=== PATIENT | male | born 1985 | race Caucasian/White ===

== ENCOUNTER 2020-06-05 11:09 | Emergency (ER) | payer BC, OTHER ==
[2020-06-05 11:39] VITALS: BP 144/94; PULSE 77; RESP 18; TEMP 98.1
[2020-06-05] MEDS ORDERED: KETOROLAC 15 MG/ML 1 ML VIAL IM STA (11:57)
[2020-06-05] MEDS ORDERED: ORPHENADRINE 30 MG/ML 2 ML VIAL IM STA (11:57)
--- NOTE | 2020-06-05 12:08 | ED ---
General Adult HPI - General Chief complaint: Back Pain/Injury Stated complaint: back pain Time Seen by Provider: 06/05/20 11:40 Source: patient, RN notes reviewed Mode of arrival: ambulatory Limitations: no limitations - History of Present Illness Initial comments: 34-year-old male presents to the emergency room for a chief complaint of back pain. Patient reports that he jumped out of his kids trampoline yesterday and felt a pain in his back. States that her out the evening as he was sitting was worsening. States now the pain worsens with movement. Denies any pain radiating down the legs. Denies weakness of the legs. Denies fevers or chills. Denies saddle anesthesia or bladder or bowel changes. Patient states last year he had a stress fracture of L5 and is here to have an x-ray performed.Patient has no other complaints at this time including shortness of breath, chest pain, abdominal pain, nausea or vomiting, headache, or visual changes. - Related Data Previous Rx's Medication Instructions Recorded Ibuprofen [Motrin] 600 mg PO Q6HR PRN #20 tab 06/05/20 Allergies Allergy/AdvReac Type Severity Reaction Status Date / Time No Known Allergies Allergy Verified 06/05/20 13:07 Review of Systems ROS Statement: Those systems with pertinent positive or pertinent negative responses have been documented in the HPI. ROS Other: All systems not noted in ROS Statement are negative. Past Medical History Past Medical History: No Reported History History of Any Multi-Drug Resistant Organisms: None Reported Past Surgical History: Hernia Repair, Orthopedic Surgery Past Psychological History: No Psychological Hx Reported Smoking Status: Never smoker Past Alcohol Use History: None Reported Past Drug Use History: None Reported General Exam Limitations: no limitations General appearance: alert, in no apparent distress Head exam: Present: atraumatic, normocephalic, normal inspection Eye exam: Present: normal appearance, PERRL, EOMI. Absent: scleral icterus, conjunctival injection, periorbital swelling ENT exam: Present: normal exam, mucous membranes moist Neck exam: Present: normal inspection, full ROM. Absent: tenderness, meningismus, lymphadenopathy Respiratory exam: Present: normal lung sounds bilaterally. Absent: respiratory distress, wheezes, rales, rhonchi, stridor Cardiovascular Exam: Present: regular rate, normal rhythm, normal heart sounds GI/Abdominal exam: Present: soft, normal bowel sounds. Absent: distended, tenderness, guarding, rebound, rigid Back exam: Present: other (Patient has pain with 90 flexion of the lumbar spine, extension to neutral position. Movement elicits pain.). Absent: paraspinal tenderness, vertebral tenderness Course Vital Signs 06/05/20 11:35 Temperature 98.1 F Pulse Rate 77 Respiratory 18 Rate Blood Pressure 144/94 O2 Sat by Pulse 98 Oximetry Medical Decision Making - Medical Decision Making Vitals are stable. Patient is well-appearing. HPI physical exam as documented. No red flag symptoms. Lumbar spine x-ray shows a mild degenerative disc disease however no vertebral compression collapse or malalignment. At this time patient was given Toradol and Norflex and did have some improvement in symptoms. Patient will be started on Motrin and Tylenol 3. He will be given a referral to orthopedics. He'll return here for any worsening symptoms. Disposition Clinical Impression: Mechanical back pain Disposition: HOME SELF-CARE Condition: Good Instructions (If sedation given, give patient instructions): Acute Low Back Pain (ED) Additional Instructions: Please take Motrin as needed for pain. Take Tylenol 3 for breakthrough pain. Follow up with orthopedics by calling today for an appointment. Return to the emergency room for any worsening symptoms. Prescriptions: Ibuprofen [Motrin] 600 mg PO Q6HR PRN #20 tab PRN Reason: Pain Is patient prescribed a controlled substance at d/c from ED?: No Referrals: Darnell Washington DO [Doctor of Osteopathic Medicine] - 1-2 days Time of Disposition: 14:00
--- NOTE | 2020-06-05 13:20 | XR ---
EXAMINATION TYPE: XR lumbar spine 2 or 3V DATE OF EXAM: 06/05/2020 Comparison: None Clinical History: 34-year-old male low back pain Findings: 5 lumbar type vertebral bodies. Vertebral body heights are preserved and alignment is maintained. The re is mild degenerative disc interspace narrowing at L5-S1. Impression: Mild degenerative disc disease L5-S1. No vertebral compression collapse or malalignment.
[2020-06-05] MEDS ORDERED: ACET/COD 300 MG/30 MG STARTER PACK 6 TAB BTL PO STA (14:00)
== END 2020-06-05 14:20 | disposition home or self-care (01) ==
LOC: EC 11:09
DX: M54.9 Dorsalgia, unspecified (principal); Y93.44 Activity, trampolining
CPT/HCPCS: 72100; 99283; J2360; J1885

== ENCOUNTER → 2023-01-25 | Outpatient (CLI) | payer BC ==
--- NOTE | 2023-01-25 10:06 | XR ---
EXAMINATION TYPE: XR lumbar spine 2 or 3V DATE OF EXAM: 01/25/2023 Comparison: None Clinical History: 37-year-old male M54.41 LUMBAGO WITH SCIATICA, RIGHT SIDE Findings: 5 lumbar type vertebral bodies. Vertebral body heights are preserved. There is mild degenerative disc disease with disc space narrowing in the lower lumbar spine. And alignment is maintained. Additional mild degenerative disc disease T11-T12. Impression: Mild degenerative disc disease lower thoracic spine as well as the lower lumbar spine. No vertebral c ompression collapse or malalignment.
== END | disposition home or self-care (01) ==
LOC: RADXRMAIN 09:34
PROVIDERS: ATTEND Family Medicine
DX: M54.41 Lumbago with sciatica, right side (principal); M51.35 Other intervertebral disc degeneration, thoracolumbar region
CPT/HCPCS: 72100

== ENCOUNTER 2023-03-23 16:48 | Inpatient (IN) | payer BC ==
[2023-03-23] MEDS: SODIUM CHLORIDE 0.9% 1,000 ML IV STA ×3 (17:35→21:09)
[2023-03-23] MEDS: ONDANSETRON 4 MG/2 ML VIAL IVP STA (17:36)
[2023-03-23] MEDS: KETOROLAC 15 MG/ML 1 ML VIAL IVP STA (17:36)
[2023-03-23] MEDS: PANTOPRAZOLE 40 MG/10 ML VIAL IVP STA (17:36)
[2023-03-23 18:14] LABS: Basophils % (A) 0 %; Eosinophils % (A) 0 %; HCT 45.3 % (39.0-53.0); HGB 15.8 gm/dL (13.0-17.5); Lymphocytes # (A) 0.5 k/uL (1.0-4.8); Lymphocytes % (A) 4 %; MCH 29.9 pg (25.0-35.0); MCHC 34.9 g/dL (31.0-37.0); MCV 85.6 fL (80.0-100.0); Mean Platelet Volume 8.6; Monocytes # (A) 0.1 k/uL (0-1.0); Monocytes % (A) 1 %; Neutrophils # (A) 12.1 k/uL (1.3-7.7); Neutrophils % (A) 94 %; Platelet Count 180 k/uL (150-450); RBC 5.29 m/uL (4.30-5.90); RDW 13.5 % (11.5-15.5); WBC 12.9 k/uL (3.8-10.6)
[2023-03-23 18:16] LABS: ALT 69 U/L (4-49); AST 46 U/L (17-59); African American GFR (CKD) >90 (>60 ml/min/1.73 sqM); Albumin 4.6 g/dL (3.5-5.0); Alkaline Phosphatase 85 U/L (38-126); Amylase 39 U/L (30-110); Anion Gap 13 mmol/L; Blood Urea Nitrogen 22 mg/dL (9-20); Calcium 9.3 mg/dL (8.4-10.2); Carbon Dioxide 20 mmol/L (22-30); Chloride 104 mmol/L (98-107); Glucose 119 mg/dL (74-99); Lipase 31 U/L (23-300); Non-African American GFR(CKD) 83 (>60 ml/min/1.73 sqM); Potassium 4.2 mmol/L (3.5-5.1); Sodium 137 mmol/L (137-145); Total Protein 7.6 g/dL (6.3-8.2)
[2023-03-23 18:47] LABS: INR 1.4 (<1.2); Partial Thromboplastin Time 26.4 sec (22.0-30.0); Prothrombin Time 14.1 sec (10.0-12.5)
--- NOTE | 2023-03-23 18:58 | US ---
EXAMINATION TYPE: US abdomen comp/pelvis limited DATE OF EXAM: 03/23/2023 COMPARISON: NONE CLINICAL INDICATION: Male, 37 years old with history of eval gallbladder; pain EXAM MEASUREMENTS: Liver Length: 19.4 cm Gallbladder Wall: 0.2 cm CBD: 0.3 cm Spleen: 13.3 cm Right Kidney: 12.9 x 4.7 x 4.8 cm Left Kidney: 14.1 x 5.2 x 4.7 cm Post Void Residual: not full Pancreas: Obscured by bowel gas Liver: Increased attenuation Gallbladder: No stones seen CBD: wnl Spleen: wnl Right Kidney: No hydronephrosis or masses seen Left Kidney: No hydronephrosis or masses seen Upper IVC: wnl Abd Aorta: wnl Bladder: Not fully distended. Bilateral Jets Seen: no IMPRESSION: 1. No acute sonographic abnormality of the gallbladder or biliary tree. 2. Mild hepatomegaly and hepatic steatosis.
[2023-03-23] MEDS: ACETAMINOPHEN TAB 500 MG TAB PO STA (19:50)
[2023-03-23] MEDS: MORPHINE SULFATE 4 MG/ML SYRINGE IVP STA (19:51)
--- NOTE | 2023-03-23 20:12 | CT ---
EXAMINATION TYPE: CT abdomen pelvis w con CT DLP: 1688.7 mGycm, Automated exposure control for dose reduction was used. DATE OF EXAM: 03/23/2023 7:29 PM COMPARISON: None. CLINICAL INDICATION:Male, 37 years old with history of right sided abd pain; right sided abdominal pa in TECHNIQUE: Axial CT of the abdomen and pelvis. Sagittal and coronal reformats were created on a [employer] workstation. Contrast used:100 ml mL of Isovue 370 with IV Contrast, (none if empty) Oral contrast used: without Oral Contrast (none if empty) FINDINGS: LOWER CHEST: No acute abnormality. Mild subsegmental atelectasis in the right lung base. ABDOMEN LIVER: Liver appears prominent with the right lobe measuring up to 22.8 cm craniocaudal; this could r epresent hepatomegaly versus Clara's lobe. Liver parenchyma is otherwise unremarkable. GALLBLADDER AND BILE DUCTS: Unremarkable gallbladder. No biliary ductal dilatation. PANCREAS: Unremarkable. SPLEEN: Unremarkable. ADRENAL GLANDS: Unremarkable. KIDNEYS AND URETERS: Kidneys enhance symmetrically. No evidence of hydronephrosis or visible renal ca lculus. The ureters are unremarkable. PELVIS BLADDER: Unremarkable REPRODUCTIVE: Unremarkable. ABDOMEN & PELVIS STOMACH AND BOWEL: Nondistended stomach and duodenum. More distal small bowel loops are nondistended with scattered fluid noted and no evidence of obstruction. Fatty infiltration of the ileocecal valve. Some fluid is noted within the right colon with some more formed stool farther distally. Retrocecal appendix is seen, appears dilated and inflamed consistent with acute appendicitis. There a re at least 2 small ovoid peripherally calcified structures in the lumen suggestive of appendicoliths . Some fluid and small amounts of gas superiorly are believed contained within the appendiceal lumen. Appendix is dilated up to 12.7 mm diameter with wall thickening and enhancement. Inflammatory change s of the periappendiceal fat and mildly enlarged regional lymph nodes. No extra-appendiceal free air or fluid collection identified. PERITONEUM/RETROPERITONEUM: No evidence of pneumoperitoneum or free fluid. VASCULATURE: Unremarkable. No AAA. Portal veins are enhancing. Splenic vein is patent. LYMPH NODES: No gross evidence for lymphadenopathy. SOFT TISSUE/ABDOMINAL WALL: Moderate sized fat-containing hernia at the superior aspect of the umbili cus has a 2.4 cm neck and the hernia sac is up to 2.3 cm craniocaudal and 3.9 x 3.5 cm axial. MUSCULOSKELETAL: No acute osseous abnormalities. [id number] degenerative disc disease changes L4-L5 and L5-S1 with posterior disc osteophyte complexes causing mild canal and neural foraminal sten oses at L4-L5, and mild/moderate canal and neural foraminal stenoses L5-S1. IMPRESSION: Positive study for acute uncomplicated appendicitis.
[2023-03-23] MEDS ORDERED: ACETAMINOPHEN IV (For NPO) 1,000 MG in EMPTY BAG 1 BAG IVPB PRN (20:52)
[2023-03-23] MEDS ORDERED: NALOXONE 0.4 MG/ML 1 ML VIAL IV PRN (20:53)
[2023-03-23] MEDS ORDERED: ONDANSETRON 4 MG/2 ML VIAL IVP PRN (20:53)
[2023-03-23] MEDS ORDERED: MORPHINE SULFATE 4 MG/ML SYRINGE IV PRN (20:53)
[2023-03-23] MEDS ORDERED: ACETAMINOPHEN IV (For NPO) 1,000 MG in EMPTY BAG 1 BAG IVPB SCH (21:00)
[2023-03-23] MEDS: PIPERACILLIN-TAZOBACTAM 3.375 GM in SODIUM CHLORIDE 0.9% 100 ML IVPB STA (21:09)
[2023-03-23] MEDS: ACETAMINOPHEN IV (For NPO) 1,000 MG in EMPTY BAG 1 BAG IVPB STA (21:15)
--- NOTE | 2023-03-23 21:16 | ED ---
General Adult HPI - General Chief complaint: Fever Stated complaint: Abdominal pain; chills Time Seen by Provider: 03/23/23 17:03 Source: patient, RN notes reviewed, old records reviewed Mode of arrival: ambulatory Limitations: no limitations - History of Present Illness Initial comments: Patient is a 37-year-old male who presents emergency department complaining of abdominal pain, fevers, chills. Describes it as right flank pain with radiation towards his right groin. No known urinary complaints. Mild nausea but no change in bowel movements. No chest pain or shortness of breath. Pain does not seem to radiate. Denies any other acute complaints at this time. No known sick contacts. Presents for further evaluation. No known intra-abdominal surgery in the past. - Related Data Home Medications Medication Instructions Recorded Confirmed Cyclobenzaprine (Uknown Strength) 1 dose PO DIRECTED PRN 03/23/23 03/23/23 Esomeprazole Magnesium [NexIUM 20 mg PO BID PRN 03/23/23 03/23/23 24Hr] Ondansetron Odt [Zofran Odt] 4 mg PO Q6H PRN 03/23/23 03/23/23 hydrOXYzine HCL [Atarax] 25 mg PO TID PRN 03/23/23 03/23/23 Previous Rx's Medication Instructions Recorded Ibuprofen [Motrin] 600 mg PO Q6HR PRN #20 tab 06/05/20 Allergies Allergy/AdvReac Type Severity Reaction Status Date / Time No Known Allergies Allergy Verified 03/23/23 19:15 Review of Systems ROS Statement: Those systems with pertinent positive or pertinent negative responses have been documented in the HPI. Review of Systems: CONST: Denies fever EYES: Denies blurry vision ENT: Denies nasal congestion C/V: Denies Chest pain RESP: Denies shortness of breath GI: Endorses abdominal pain : Denies dysuria SKIN: Denies rash. MSK: Denies joint pain. NEURO: Denies headache ROS Other: All systems not noted in ROS Statement are negative. Past Medical History Past Medical History: No Reported History History of Any Multi-Drug Resistant Organisms: None Reported Past Surgical History: Hernia Repair, Orthopedic Surgery Past Psychological History: No Psychological Hx Reported Smoking Status: Never smoker Past Alcohol Use History: Occasional Past Drug Use History: None Reported General Exam - General Exam Comments Initial Comments: General: Appears in moderate distress. HEAD: Normal with no signs of head trauma. EYES: PERRLA, EOMI, conjunctiva normal, no discharge. ENT: Hearing grossly intact, normal oropharynx. RESPIRATORY: Clear breath sounds bilaterally. No wheezes, rales, or rhonchi. C/V: Regular rate and rhythm. S1 and S2 auscultated, no edema, peripheral pulses 2+ and intact throughout ABD: Abdomen soft, nondistended. Tender to palpation in the right upper, right lower quadrants, as well as right flank. No guarding. No rebound tenderness. No peritoneal signs. EXT: Normal range of motion, no obvious deformity SKIN: No rashes or lesions observed on exposed skin. NEURO: Alert and oriented x 4. Cranial nerves II-XII intact. No focal sensory or strength deficits. Limitations: no limitations Course Vital Signs 03/23/23 03/23/23 03/23/23 16:58 18:53 20:56 Temperature 99.4 F 103.9 F H 101 F H Pulse Rate 121 H 114 H 104 H Respiratory 18 18 14 Rate Blood Pressure 130/78 123/92 113/72 O2 Sat by Pulse 100 95 95 Oximetry Medical Decision Making - Medical Decision Making Was pt. sent in by a medical professional or institution (, PA, CERTIFIED MAINTENANCE WELDER, urgent c are, hospital, or [facility]...) When possible be specific @ -No Did you speak to anyone other than the patient for history (EMS, parent, family, police, friend...)? What history was obtained from this source @ -No Did you review nursing and triage notes (agree or disagree)? Why? @ -I reviewed and agree with nursing and triage notes Were old charts reviewed (outside hosp., previous admission, EMS record, old EKG, old radiological studies, urgent care reports/EKG's, [facility] records)? Report findings @ -No old charts were reviewed Differential Diagnosis (chest pain, altered mental status, abdominal pain women, abdominal pain men, vaginal bleeding, weakness, fever, dyspnea, syncope, headache, dizziness, GI bleed, back pain, seizure, CVA, palpatations, mental health, musculoskeletal)? @ -Differential Abdominal Pain Men: Appendicitis, cholecystitis, diverticulosis, ischemic bowel, pancreatitis, hepatitis, UTI, gastroenteritis, AAA, incarcerated hernia, bowel obstruction, co nstipation, inflammatory bowel, hepatitis, peptic ulcer disease, splenic infarction, perforated viscus, testicular torsion, this is not meant to be an all-inclusive list EKG interpreted by me (3pts min.). @ -None done X-rays interpreted by me (1pt min.). @ -None done CT interpreted by me (1pt min.). @ -CT abdomen pelvis reveals acute uncomplicated appendicitis. U/S interpreted by me (1pt. min.). @ -Ultrasound gallbladder and kidneys unremarkable. What testing was considered but not performed or refused? (CT, X-rays, U/S, labs)? Why? @ -None What meds were considered but not given or refused? Why? @ -None Did you discuss the management of the patient with other professionals (professionals i.e. , PA, CERTIFIED MAINTENANCE WELDER, lab, RT, psych nurse, perinatal social worker, sewer hand, teacher, commissioned security officer, housing case manager)? Give summary @ -No Was smoking cessation discussed for >3mins.? @ -No Was critical care preformed (if so, how long)? @ -No Were there social determinants of health that impacted care today? How? (Homelessness, low income, unemployed, alcoholism, drug addiction, transportation, low edu. Level, literacy, decrease access to med. care, prison, rehab)? @ -No Was there de-escalation of care discussed even if they declined (Discuss DNR or withdrawal of care, Hospice)? DNR status @ -No What co-morbidities impacted this encounter? (DM, HTN, Smoking, COPD, CAD, Cancer, CVA, ARF, Chemo, Hep., AIDS, mental health diagnosis, sleep apnea, morbid obesity)? @ -None Was patient admitted / discharged? Hospital course, mention meds given and route, prescriptions, significant lab abnormalities, going to OR and other pertinent info. @ -Based on patient's presentation and physical exam, presents with abdominal pain. Seems to be right-sided and right flank. Unknown etiology. I did discuss with the patient, and we will obtain ultrasounds initially to evaluate for any indirect evidence of kidney stones or gallbladder pathology will wait for results of laboratory studies. Ultimately patient will likely require CT imaging. He was in agreement this plan. He will be symptomatically treated with IV fluids, Toradol, Protonix, Zofran. Patient currently has no significant fever but we will continue to monitor. Vital signs otherwise remarkable for tachycardia likely secondary to pain. Patient's laboratory studies remarkable for leukocytosis of 12.9. Lactic acidosis of 2.1. Remainder of labs within acceptable limits. Still pending urinalysis. Ultrasound revealed no obvious findings. At this time I did recommend a CT and he was in agreement this plan. At this time patient was also febrile and was administered oral acetaminophen. He was given IV morphine for analgesia. CT imaging reveals acute appendicitis. We will obtain blood cultures. Patient started on IV Zosyn. Patient will be made NPO. Repeat vital signs show improvement of the patient's fever to 101 as well as improvement of his tachycardia to 104. Remains hemodynamically stable otherwise. He has received multiple fluid boluses and is on maintenance fluids at this time. I did discuss the case with on-call surgery, Dr. Bee, who accepted the patient onto his service. Was in agreement with the above management. Surgery likely in the morning for appendectomy. I did convey this to the patient and family. They expressed understanding were in agreement this plan. Undiagnosed new problem with uncertain prognosis? @ -No Drug Therapy requiring intensive monitoring for toxicity (Heparin, Nitro, In sulin, Cardizem)? @ -No Were any procedures done? @ -No Diagnosis/symptom? @ -Appendicitis Acute, or Chronic, or Acute on Chronic? @ -Acute Uncomplicated (without systemic symptoms) or Complicated (systemic symptoms)? @ -Complicated Side effects of treatment? @ -No Exacerbation, Progression, or Severe Exacerbation? @ -No Poses a threat to life or bodily function? How? (Chest pain, USA, MD, pneumonia, PE, COPD, DKA, ARF, appy, cholecystitis, CVA, Diverticulitis, Homicidal, Suicidal, threat to staff... and all critical care pts) @ -Yes - Lab Data Result diagrams: 03/23/23 17:28 03/23/23 17:28 Lab Results 03/23/23 03/23/23 03/23/23 Range/Units 17:09 17: 17:28 WBC 12.9 H (3.8-10.6) k/uL RBC 5.29 (4.30-5.90) m/uL Hgb 15.8 (13.0-17.5) gm/dL Hct 45.3 (39.0-53.0) % MCV 85.6 (80.0-100.0) fL MCH 29.9 (25.0-35.0) pg MCHC 34.9 (31.0-37.0) g/dL RDW 13.5 (11.5-15.5) % Plt Count 180 (150-450) k/uL MPV 8.6 Neutrophils % 94 % Lymphocytes % 4 % Monocytes % 1 % Eosinophils % 0 % Basophils % 0 % Neutrophils # 12.1 H (1.3-7.7) k/uL Lymphocytes # 0.5 L (1.0-4.8) k/uL Monocytes # 0.1 (0-1.0) k/uL Eosinophils # 0.0 (0-0.7) k/uL Basophils # 0.0 (0-0.2) k/uL PT 14.1 H (10.0-12.5) sec INR 1.4 H (<1.2) APTT 26.4 (22.0-30.0) sec Sodium (137-145) mmol/L Potassium (3.5-5.1) mmol/L Chloride (98-107) mmol/L Carbon Dioxide (22-30) mmol/L Anion Gap mmol/L BUN (9-20) mg/dL Creatinine (0.66-1.25) mg/dL Est GFR (CKD-EPI)AfAm (>60 ml/min/1.73 sqM) Est GFR (CKD-EPI)NonAf (>60 ml/min/1.73 sqM) Glucose (74-99) mg/dL Lactic Ac Sepsis Rflx Plasma Lactic Acid Demetrio (0.7-2.0) mmol/L Calcium (8.4-10.2) mg/dL Total Bilirubin (0.2-1.3) mg/dL AST (17-59) U/L ALT (4-49) U/L Alkaline Phosphatase (38-126) U/L Total Protein (6.3-8.2) g/dL Albumin (3.5-5.0) g/dL Amylase (30-110) U/L Lipase (23-300) U/L Influenza Type A (PCR) Not Detected (Not Detectd) Influenza Type B (PCR) Not Detected (Not Detectd) RSV (PCR) Not Detected (Not Detectd) SARS-CoV-2 (PCR) Not Detected (Not Detectd) Group A Strep (PCR) (Not Detectd) 03/23/23 03/23/23 03/23/23 Range/Units 17:28 17:28 18:20 WBC (3.8-10.6) k/uL RBC (4.30-5.90) m/uL Hgb (13.0-17.5) gm/dL Hct (39.0-53.0) % MCV (80.0-100.0) fL MCH (25.0-35.0) pg MCHC (31.0-37.0) g/dL RDW (11.5-15.5) % Plt Count (150-450) k/uL MPV Neutrophils % % Lymphocytes % % Monocytes % % Eosinophils % % Basophils % % Neutrophils # (1.3-7.7) k/uL Lymphocytes # (1.0-4.8) k/uL Monocytes # (0-1.0) k/uL Eosinophils # (0-0.7) k/uL Basophils # (0-0.2) k/uL PT (10.0-12.5) sec INR (<1.2) APTT (22.0-30.0) sec Sodium 137 (137-145) mmol/L Potassium 4.2 (3.5-5.1) mmol/L Chloride 104 (98-107) mmol/L Carbon Dioxide 20 L (22-30) mmol/L Anion Gap 13 mmol/L BUN 22 H (9-20) mg/dL Creatinine 1.14 (0.66-1.25) mg/dL Est GFR (CKD-EPI)AfAm >90 (>60 ml/min/1.73 sqM) Est GFR (CKD-EPI)NonAf 83 (>60 ml/min/1.73 sqM) Glucose 119 H (74-99) mg/dL Lactic Ac Sepsis Rflx Y Plasma Lactic Acid Demetrio 2.1 H* (0.7-2.0) mmol/L Calcium 9.3 (8.4-10.2) mg/dL Total Bilirubin 2.0 H (0.2-1.3) mg/dL AST 46 (17-59) U/L ALT 69 H (4-49) U/L Alkaline Phosphatase 85 (38-126) U/L Total Protein 7.6 (6.3-8.2) g/dL Albumin 4.6 (3.5-5.0) g/dL Amylase 39 (30-110) U/L Lipase 31 (23-300) U/L Influenza Type A (PCR) (Not Detectd) Influenza Type B (PCR) (Not Detectd) RSV (PCR) (Not Detectd) SARS-CoV-2 (PCR) (Not Detectd) Group A Strep (PCR) (Not Detectd) 03/23/23 Range/Units 19:16 WBC (3.8-10.6) k/uL RBC (4.30-5.90) m/uL Hgb (13.0-17.5) gm/dL Hct (39.0-53.0) % MCV (80.0-100.0) fL MCH (25.0-35.0) pg MCHC (31.0-37.0) g/dL RDW (11.5-15.5) % Plt Count (150-450) k/uL MPV Neutrophils % % Lymphocytes % % Monocytes % % Eosinophils % % Basophils % % Neutrophils # (1.3-7.7) k/uL Lymphocytes # (1.0-4.8) k/uL Monocytes # (0-1.0) k/uL Eosinophils # (0-0.7) k/uL Basophils # (0-0.2) k/uL PT (10.0-12.5) sec INR (<1.2) APTT (22.0-30.0) sec Sodium (137-145) mmol/L Potassium (3.5-5.1) mmol/L Chloride (98-107) mmol/L Carbon Dioxide (22-30) mmol/L Anion Gap mmol/L BUN (9-20) mg/dL Creatinine (0.66-1.25) mg/dL Est GFR (CKD-EPI)AfAm (>60 ml/min/1.73 sqM) Est GFR (CKD-EPI)NonAf (>60 ml/min/1.73 sqM) Glucose (74-99) mg/dL Lactic Ac Sepsis Rflx Plasma Lactic Acid Demetrio (0.7-2.0) mmol/L Calcium (8.4-10.2) mg/dL Total Bilirubin (0.2-1.3) mg/dL AST (17-59) U/L ALT (4-49) U/L Alkaline Phosphatase (38-126) U/L Total Protein (6.3-8.2) g/dL Albumin (3.5-5.0) g/dL Amylase (30-110) U/L Lipase (23-300) U/L Influenza Type A (PCR) (Not Detectd) Influenza Type B (PCR) (Not Detectd) RSV (PCR) (Not Detectd) SARS-CoV-2 (PCR) (Not Detectd) Group A Strep (PCR) NOT DETECTED (Not Detectd) Disposition Clinical Impression: Appendicitis Disposition: ADMITTED IP TO THIS HOSP Condition: Stable Referrals: Neal Christianson MD [Primary Care Provider] - 1-2 days Time of Disposition: 20:15
[2023-03-24 02:13] LABS: Appearance,Urine Clear (Clear); Bilirubin,Urine Negative (Negative); Blood,Urine Small (Negative); Color,Urine Yellow; Glucose,Urine (UA) Negative (Negative); Ketones,Urine Trace (Negative); Leukocyte Esterase,Urine Negative (Negative); Nitrite,Urine Negative (Negative); PH, Urine 5.5 (5.0-8.0); Protein,Urine Trace (Negative); RBC,Urine 2 /hpf (0-5); Urobilinogen,Urine <2.0 mg/dL (<2.0); WBC,Urine <1 /hpf (0-5)
[2023-03-24 02:14] LABS: Specific Gravity,Urine >1.050 (1.001-1.035)
[2023-03-24] MEDS: PIPERACILLIN-TAZOBACTAM 3.375 GM in SODIUM CHLORIDE 0.9% 100 ML IVPB SCH (04:58)
[2023-03-24] MEDS: BUPIVACAINE (PF) 0.25% 30 ML VIAL SQ ONE ×2 (05:53→06:25)
[2023-03-24] MEDS ORDERED: GLYCOPYRROLATE 0.2 MG/ML 2 ML VIAL ONE (06:01)
[2023-03-24] MEDS ORDERED: MIDAZOLAM 2 MG/2 ML VIAL ONE (06:01)
[2023-03-24] MEDS ORDERED: NEOSTIGMINE 1 MG/ML 10 ML VIAL ONE (06:01)
[2023-03-24] MEDS ORDERED: ONDANSETRON 4 MG/2 ML VIAL ONE (06:01)
[2023-03-24] MEDS ORDERED: fentaNYL (PF) 50 MCG/ML 2 ML AMP ONE (06:01)
[2023-03-24] MEDS ORDERED: DEXAMETHASONE SOD PHOSPHATE 4 MG/ML 1 ML VIAL ONE (06:01)
[2023-03-24] MEDS ORDERED: KETOROLAC 30 MG/ML 1 ML VIAL ONE (06:01)
[2023-03-24] MEDS: SODIUM CHLORIDE 0.9% 1,000 ML IV ONE ×2 (06:01→06:48)
[2023-03-24] MEDS ORDERED: LIDOCAINE 1% INJ 10MG/ML (20 ML MDV) ONE (06:01)
[2023-03-24] MEDS ORDERED: SUCCINYLCHOLINE CHLORIDE 200 MG/10 ML VIAL IV ONE (06:01)
[2023-03-24] MEDS ORDERED: ROCURONIUM 10 MG/ML (5 ML VIAL) IV ONE (06:01)
[2023-03-24] MEDS ORDERED: PROPOFOL 10 MG/ML 20 ML VIAL IV ONE (06:01)
[2023-03-24] MEDS ORDERED: .MORPHINE SULFATE (INJ) 10 MG/ML SYRINGE ONE (06:01)
--- NOTE | 2023-03-24 06:04 | P.GSHP ---
History of Present Illness H&P Date: 03/24/23 Chief Complaint: Acute appendicitis 37-year-old male presents to the ER yesterday evening with complaints of abdominal pain. Pain began Friday afternoon and gradually became progressively worse. Pain mostly in the right mid abdomen. Some nausea. No vomiting. He felt febrile at home and again was febrile in the hospital. Some anorexia. White blood cell count 12.9. Lactic acid initially elevated and returned to normal after IV hydration. Patient says he is not having pain now unless he moves. CAT scan was performed showing acute appendicitis. - Review of Systems Comment: The patient denies any acute changes in vision or hearing, no dysphagia or odynophagia, no chest pain or shortness of breath, no dysuria or hematuria, no headache, no runny nose, no rectal bleeding or melena, no unexplained weight loss Past Medical History Past Medical History: No Reported History History of Any Multi-Drug Resistant Organisms: None Reported Past Surgical History: Hernia Repair, Orthopedic Surgery Additional Past Surgical History / Comment(s): Left knee, Right ankle Past Anesthesia/Blood Transfusion Reactions: No Reported Reaction Past Psychological History: No Psychological Hx Reported Smoking Status: Never smoker Past Alcohol Use History: Occasional Past Drug Use History: None Reported Medications and Allergies Home Medications Medication Instructions Recorded Confirmed Type Ibuprofen [Motrin] 600 mg PO Q6HR PRN #20 tab 06/05/20 03/23/23 Rx Cyclobenzaprine (Uknown Strength) 1 dose PO DIRECTED PRN 03/23/23 03/23/23 History Esomeprazole Magnesium [NexIUM 20 mg PO BID PRN 03/23/23 03/23/23 History 24Hr] Ondansetron Odt [Zofran Odt] 4 mg PO Q6H PRN 03/23/23 03/23/23 History hydrOXYzine HCL [Atarax] 25 mg PO TID PRN 03/23/23 03/23/23 History Allergies Allergy/AdvReac Type Severity Reaction Status Date / Time No Known Allergies Allergy Verified 03/23/23 19:15 Surgical - Exam Vital Signs Temp Pulse Resp BP Pulse Ox 99.4 F 121 H 18 130/78 100 03/23/23 16:58 03/23/23 16:58 03/23/23 16:58 03/23/23 16:58 03/23/23 16:58 Physical exam: General: Well-developed, well-nourished HEENT: Normocephalic, sclerae nonicteric Abdomen: Right lower quadrant tenderness, nondistended Extremities: No edema Neuro: Alert and oriented Results - Labs 03/23/23 17:28 03/23/23 17:28 Abnormal Lab Results - Last 24 Hours (Table) 03/23/23 03/23/23 03/23/23 Range/Units 17:28 17:28 17:28 WBC 12.9 H (3.8-10.6) k/uL Neutrophils # 12.1 H (1.3-7.7) k/uL Lymphocytes # 0.5 L (1.0-4.8) k/uL PT 14.1 H (10.0-12.5) sec INR 1.4 H (<1.2) Carbon Dioxide 20 L (22-30) mmol/L BUN 22 H (9-20) mg/dL Glucose 119 H (74-99) mg/dL Plasma Lactic Acid Demetrio (0.7-2.0) mmol/L Total Bilirubin 2.0 H (0.2-1.3) mg/dL ALT 69 H (4-49) U/L Ur Specific [place] (1.001-1.035) Urine Protein (Negative) Urine Ketones (Negative) Urine Blood (Negative) 03/23/23 03/24/23 Range/Units 17:28 01:30 WBC (3.8-10.6) k/uL Neutrophils # (1.3-7.7) k/uL Lymphocytes # (1.0-4.8) k/uL PT (10.0-12.5) sec INR (<1.2) Carbon Dioxide (22-30) mmol/L BUN (9-20) mg/dL Glucose (74-99) mg/dL Plasma Lactic Acid Demetrio 2.1 H* (0.7-2.0) mmol/L Total Bilirubin (0.2-1.3) mg/dL ALT (4-49) U/L Ur Specific [place] >1.050 H (1.001-1.035) Urine Protein Trace H (Negative) Urine Ketones Trace H (Negative) Urine Blood Small H (Negative) Diabetes panel 03/23/23 Range/Units 17:28 Sodium 137 (137-145) mmol/L Potassium 4.2 (3.5-5.1) mmol/L Chloride 104 (98-107) mmol/L Carbon Dioxide 20 L (22-30) mmol/L BUN 22 H (9-20) mg/dL Creatinine 1.14 (0.66-1.25) mg/dL Glucose 119 H (74-99) mg/dL Calcium 9.3 (8.4-10.2) mg/dL AST 46 (17-59) U/L ALT 69 H (4-49) U/L Alkaline Phosphatase 85 (38-126) U/L Total Protein 7.6 (6.3-8.2) g/dL Albumin 4.6 (3.5-5.0) g/dL Calcium panel 03/23/23 Range/Units 17:28 Calcium 9.3 (8.4-10.2) mg/dL Albumin 4.6 (3.5-5.0) g/dL Pituitary panel 03/23/23 Range/Units 17:28 Sodium 137 (137-145) mmol/L Potassium 4.2 (3.5-5.1) mmol/L Chloride 104 (98-107) mmol/L Carbon Dioxide 20 L (22-30) mmol/L BUN 22 H (9-20) mg/dL Creatinine 1.14 (0.66-1.25) mg/dL Glucose 119 H (74-99) mg/dL Calcium 9.3 (8.4-10.2) mg/dL Adrenal panel 03/23/23 Range/Units 17:28 Sodium 137 (137-145) mmol/L Potassium 4.2 (3.5-5.1) mmol/L Chloride 104 (98-107) mmol/L Carbon Dioxide 20 L (22-30) mmol/L BUN 22 H (9-20) mg/dL Creatinine 1.14 (0.66-1.25) mg/dL Glucose 119 H (74-99) mg/dL Calcium 9.3 (8.4-10.2) mg/dL Total Bilirubin 2.0 H (0.2-1.3) mg/dL AST 46 (17-59) U/L ALT 69 H (4-49) U/L Alkaline Phosphatase 85 (38-126) U/L Total Protein 7.6 (6.3-8.2) g/dL Albumin 4.6 (3.5-5.0) g/dL Assessment and Plan (1) Appendicitis Narrative/Plan: 37-year-old male with acute appendicitis. Will proceed with laparoscopic, possible open appendectomy at this time. Risks of bleeding, infection, scarring, abscess, drain placement, bladder bowel and ureteral injury, conversion to an open procedure all discussed. Patient understands and wishes to proceed. Current Visit: Yes Status: Acute Code(s): K37 - UNSPECIFIED APPENDICITIS SNOMED Code(s): 40210863
[2023-03-24] MEDS ORDERED: HYDROmorphone 1 MG/ML 1 ML SYRINGE IVP PRN (07:35)
[2023-03-24] MEDS: PANTOPRAZOLE 40 MG/10 ML VIAL IV SCH (07:37)
--- NOTE | 2023-03-24 07:42 | P.OP ---
Date of Procedure: 03/24/23 Procedure(s) Performed: PREOPERATIVE DIAGNOSIS: Acute appendicitis POSTOPERATIVE DIAGNOSIS: Same PROCEDURE: Laparoscopic appendectomy SURGEON: Rohit EBL: 25 cc ANESTHESIA: General COMPLICATIONS: None OPERATIVE PROCEDURE: The patient was brought and placed on the operating table in the supine position. The patient was placed under general anesthesia. The abdomen was prepped and draped in the usual sterile fashion. A small vertical infraumbilical incision was made. The fascia was retracted anteriorly with [place] forceps. The Veress needle was advanced into the peritoneal cavity. The saline drop test was normal. Insufflation took place to 15 mmHg. A 5 mm trocar was then placed. An additional 5 mm suprapubic trocar was placed under direct visualization as well as a 12 mm left lower quadrant trocar under direct visualization. The appendix was noted to be retrocecal in location. I could see the tip of the appendix but mobilization of the appendix required mobilization of the cecum medially. The appendix was noted to have a small segment of gangrenous changes but there was no signs of perforation or abscess seen. The base of the appendix was divided using a linear 75 stapler and the mesentery was divided using LigaSure. The area was irrigated. No bleeding or purulence was seen. A drain was placed into the abdominal cavity through the suprapubic trocar site and laid along the right gutter. This was sutured in place using a 3-0 silk stitch. The appendix was brought out of the peritoneal cavity through the left lower quadrant trocar site with a Endo Catch. The fascia at the 12 mm site was closed using a Kelvin-Carly 0 Vicryl stitch. The skin at the remaining 2 incision sites was closed using 4-0 Monocryl sutures. Skin glue was then applied. DISPOSITION: Stable to recovery room
[2023-03-24] MEDS: HYDROmorphone 0.5 MG/0.5 ML SYRINGE IVP ONE (07:56)
[2023-03-24] MEDS: HEPARIN SODIUM,PORCINE 5,000 UNIT/ML 1 ML VIAL SQ SCH (08:16)
[2023-03-24 08:51] LABS: Basophils # (A) 0.04 X 10*3/uL (0.00-0.10); Basophils % (A) 0.2 %; Eosinophils # (A) 0.04 X 10*3/uL (0.04-0.35); Eosinophils % (A) 0.2 %; HGB 13.2 g/dL (13.0-17.0); Lymphocytes # (A) 0.38 X 10*3/uL (0.90-5.00); Lymphocytes % (A) 2.3 %; MCH 29.9 pg (27.0-32.0); MCV 90.7 FL (80.0-97.0); Mean Platelet Volume 11.5 FL (9.5-12.2); Monocytes # (A) 0.95 X 10*3/uL (0.20-1.00); Monocytes % (A) 5.7 %; NRBC Per 100 WBC 0 X 10*3/uL (0.00-0.01); Platelet Count 148 X 10*3/uL (140-440); RBC 4.41 X 10*6/uL (4.40-5.60); RDW 13.5 % (11.5-14.5); WBC 16.61 X 10*3/uL (4.50-10.00)
[2023-03-24 09:07] LABS: ALT 50 U/L (10-49); AST 28 U/L (14-35); Albumin 3.8 g/dL (3.8-4.9); Alkaline Phosphatase 67 U/L (41-126); BUN/Creat Ratio 18.86 Ratio (12.00-20.00); Blood Urea Nitrogen 26.4 mg/dL (9.0-27.0); Calcium 8.1 mg/dL (8.7-10.3); Carbon Dioxide 25.7 mmol/L (21.6-31.8); Chloride 103 mmol/L (96-109); Glucose 87 mg/dL (70-110); Potassium 4.6 mmol/L (3.5-5.5); Sodium 141 mmol/L (135-145); Total Bilirubin 1.8 mg/dL (0.3-1.2); Total Protein 5.8 g/dL (6.2-8.2)
[2023-03-24] MEDS: KETOROLAC 15 MG/ML 1 ML VIAL IVP SCH (11:58)
[2023-03-24] MEDS: HYDROcodone/APAP 5-325MG 1 EACH TAB PO PRN (16:02)
[2023-03-24 17:13] LABS: Glucose,Whole Blood 127 mg/dL (70-110)
[2023-03-24] MEDS: TAMSULOSIN 0.4 MG CAP.ER.24H PO SCH (19:45)
[2023-03-25] MEDS ORDERED: HYDROmorphone 0.5 MG/0.5 ML SYRINGE IVP PRN (07:00)
[2023-03-25 09:13] LABS: Basophils % (A) 0 %; Eosinophils % (A) 1 %; HCT 34.9 % (39.0-53.0); Lymphocytes # (A) 0.5 k/uL (1.0-4.8); Lymphocytes % (A) 6 %; MCH 31.1 pg (25.0-35.0); MCHC 34.9 g/dL (31.0-37.0); MCV 89.1 fL (80.0-100.0); Mean Platelet Volume 9.2; Monocytes # (A) 0.2 k/uL (0-1.0); Monocytes % (A) 2 %; Neutrophils # (A) 7.9 k/uL (1.3-7.7); Neutrophils % (A) 91 %; Platelet Count 110 k/uL (150-450); RBC 3.92 m/uL (4.30-5.90); RDW 13.2 % (11.5-15.5); WBC 8.6 k/uL (3.8-10.6)
[2023-03-25 09:15] LABS: HGB 12.2 gm/dL (13.0-17.5)
[2023-03-25] MEDS: HYDROmorphone 0.5 MG/0.5 ML SYRINGE IVP PRN (09:35)
[2023-03-25] MEDS ORDERED: ACETAMINOPHEN TAB 325 MG TAB PO PRN (13:55)
--- NOTE | 2023-03-25 15:58 | P.PN ---
Subjective Progress Note Date: 03/25/23 CHIEF COMPLAINT: Gangrenous appendicitis HISTORY OF PRESENT ILLNESS: Patient is status post laparoscopic appendectomy, postop day #1. He denies any nausea or vomiting. He did have flatus. He does complain of abdominal pain. Does report increased pain with stripping of the LEW drain. Liu catheter being discontinued this morning. Afebrile. Mildly tachycardic heart rate 102. WBC is down from 16.6-8.6 hemoglobin 12.2 LEW drain 70 mL output serosanguineous. Positive blood culture with gram-negative bacilli PHYSICAL EXAM: VITAL SIGNS: Reviewed. GENERAL: Well-developed in no acute distress. ABDOMEN: Soft. Nondistended. Mild tenderness at incision sites. LEW drain dressing intact NEUROLOGIC: Alert and oriented. Cranial nerves II through XII grossly intact. ASSESSMENT: 1. Gangrenous appendicitis 2. Bacteremia PLAN: -Continue pain management. Tylenol added as needed -Continue clear liquid diet -Continue antibiotics -Encourage patient to ambulate -Consult infectious disease for positive blood cultures with appendicitis -GI prophylaxis Protonix and DVT prophylaxis subcu heparin Physician Splicer Helper note has been reviewed by physician. Signing provider agrees with the documented findings, assessment, and plan of care. I have personally seen and examined the patient, reviewed the AUTOMATION CONSULTANT /PAs history, exam and MDM and agree with the assessment and plan as written. Based on total visit time, I have performed more than 50% of the visit. As above: Patient started having increased pain earlier today when the nursing staff was stripping his LEW drain. Feels better currently. Had some chills earlier today. Blood cultures were positive for gram-negative bacilli. Infectious disease consulted. LEW drain serosanguineous. White blood cell count has normalized. Continue liquid diet. Ambulate as tolerated. Objective - Vital Signs Vital signs: Vital Signs Temp 98.0 F 03/25/23 07:49 Pulse 71 03/25/23 08:51 Resp 18 03/25/23 08:51 BP 122/73 03/25/23 07:49 Pulse Ox 96 03/25/23 07:49 FiO2 Intake & Output 03/24/23 03/25/23 03/25/23 18:59 06:59 18:59 Intake Total 100 Output Total 1205 1200 320 Balance -1105 -1200 -320 Intake: IV 100 Output: Drainage 70 Lower Abdomen 70 Urine 1100 1200 250 Uretheral (Liu) 50 Estimated Blood Loss 105 Other: Voiding Method Indwelling Catheter Indwelling Catheter # Voids 1 - Labs CBC & Chem 7: 03/25/23 08:32 03/24/23 05:29 Labs: Abnormal Lab Results - Last 24 Hours (Table) 03/24/23 03/25/23 Range/Units 17:11 08:32 RBC 3.92 L (4.30-5.90) m/uL Hgb 12.2 L D (13.0-17.5) gm/dL Hct 34.9 L (39.0-53.0) % Plt Count 110 L (150-450) k/uL Neutrophils # 7.9 H (1.3-7.7) k/uL Lymphocytes # 0.5 L (1.0-4.8) k/uL POC Glucose (mg/dL) 127 H (70-110) mg/dL Microbiology - Last 24 Hours (Table) 03/23/23 21:15 Blood Culture Gram Stain - Preliminary Blood 03/23/23 21:00 Blood Culture Gram Stain - Preliminary Blood
[2023-03-25] MEDS: ACETAMINOPHEN TAB 325 MG TAB PO SCH (17:39)
--- NOTE | 2023-03-25 22:08 | P.CONS ---
History of Present Illness - Reason for Consult Consult date: 03/25/23 - History of Present Illness Patient is a 37-year-old male with no significant past medical history presenting to the ER 2 days ago for evaluation of abdominal pain fever and chills patient symptom has been going on for about a day before presentation to the hospital pain has been mostly in the right lower abdominal area describing it to be sharp evaluation with radiation with associated nausea and no vomiting no diarrhea or constipation, patient complaining of some fever and chills and did have a temperature of 103 F and the patient did spike another fever of 102 F this afternoon patient was tachycardic but not hypotensive or hypoxic did have white count of 16.6 with a left shift creatinine was normal bilirubin mildly elevated urine was negative influenza RSV and COVID testing was negative patient did have abdominal pelvis CT that was suggestive of uncomplicated appendicitis patient was taken to the OR yesterday morning and the patient is status post laparoscopic appendectomy he did have blood cultures drawn which came back positive with gram-negative bacilli prompting this infectious disease consultation patient is currently on Zosyn, patient be complaining of feeling hot with some chills denies any headache or URI symptoms no chest pain shortness of breath or cough did have some nausea but no vomiting still complaining of abdominal pain moderate intensity without any radiation Past Medical History Past Medical History: No Reported History History of Any Multi-Drug Resistant Organisms: None Reported Past Surgical History: Hernia Repair, Orthopedic Surgery Additional Past Surgical History / Comment(s): Left knee, Right ankle Past Anesthesia/Blood Transfusion Reactions: No Reported Reaction Past Psychological History: No Psychological Hx Reported Smoking Status: Never smoker Past Alcohol Use History: Occasional Past Drug Use History: None Reported Medications and Allergies Home Medications Medication Instructions Recorded Confirmed Type Ibuprofen [Motrin] 600 mg PO Q6HR PRN #20 tab 06/05/20 03/23/23 Rx Esomeprazole Magnesium [NexIUM 20 mg PO BID PRN 03/23/23 03/23/23 History 24Hr] Ondansetron Odt [Zofran Odt] 4 mg PO Q6H PRN 03/23/23 03/23/23 History hydrOXYzine HCL [Atarax] 25 mg PO TID PRN 03/23/23 03/23/23 History Amoxic-Pot Clav 875-125Mg 1 tab PO BID 5 Days #10 tab 03/24/23 Rx [Augmentin 875-125] Cyclobenzaprine [Flexeril] 10 mg PO HS PRN 03/24/23 03/24/23 History HYDROcodone/APAP 5-325MG [[place] 1 tab PO Q6HR PRN 3 Days #6 tab 03/24/23 Rx 5-325] Allergies Allergy/AdvReac Type Severity Reaction Status Date / Time No Known Allergies Allergy Verified 03/23/23 19:15 Physical Exam Vitals: Vital Signs Temp Pulse Resp BP Pulse Ox 03/25/23 14:00 98.8 F 102 H 20 141/84 96 03/25/23 08:51 71 18 03/25/23 08:00 20 03/25/23 07:49 98.0 F 71 18 122/73 96 03/25/23 02:00 98.7 F 60 12 104/62 97 03/24/23 19:09 98.6 F 80 15 110/67 97 Intake and Output 03/24/23 03/25/23 03/25/23 22:59 06:59 14:59 Output Total 600 1200 545 Balance -600 -1200 -545 Output: Drainage 70 Lower Abdomen 70 Urine 600 1200 475 Uretheral (Liu) 50 Other: Voiding Method Indwelling Catheter Indwelling Catheter # Voids 1 Results CBC & Chem 7: 03/25/23 08:32 03/24/23 05:29 Labs: Abnormal Lab Results - Last 24 Hours (Table) 03/24/23 03/25/23 Range/Units 17:11 08:32 RBC 3.92 L (4.30-5.90) m/uL Hgb 12.2 L D (13.0-17.5) gm/dL Hct 34.9 L (39.0-53.0) % Plt Count 110 L (150-450) k/uL Neutrophils # 7.9 H (1.3-7.7) k/uL Lymphocytes # 0.5 L (1.0-4.8) k/uL POC Glucose (mg/dL) 127 H (70-110) mg/dL Microbiology - Last 24 Hours (Table) 03/23/23 21:00 Blood Culture Gram Stain - Preliminary Blood Blood Culture - Preliminary Gram Neg Bacilli 03/23/23 21:15 Blood Culture Gram Stain - Preliminary Blood Assessment and Plan Plan: 1patient with sepsis in this patient who did have a fever tachycardia elevated white count source is acute appendicitis and this patient who is status post laparoscopic appendectomy on 03/24/2023 operative report did not mention any abscess 2-patient with gram-negative bacteremia source likely abdominal 3-patient to continue Zosyn 3.375 g every 8 hours while waiting for the culture to finalize We will follow on clinical condition and cultures to further adjust medication if needed Thank you for this consultation we will follow the patient along with you Dictation was produced using [employer] dictation software. please excuse any grammatical, word or spelling errors. Time with Patient: Greater than 30
[2023-03-26] MEDS: KETOROLAC 15 MG/ML 1 ML VIAL IVP SCH (11:52)
--- NOTE | 2023-03-26 12:05 | P.PN ---
Subjective Progress Note Date: 03/26/23 Principal diagnosis: Reason for follow-up is gram-negative bacteremia and acute appendicitis Patient is a 37-year-old male with no significant past medical history presenting to the ER for evaluation of abdominal pain fever and chills has been diagnosed with acute appendicitis status post laparoscopic appendectomy blood cultures came back positive with gram-negative bacilli prompting this infectious disease consultation. On today's evaluation that is 03/26/2023, the patient is afebrile, patient is on room air, the patient denies chest pain shortness of breath or cough, patient denies nausea no vomiting abdominal pain is controlled and no diarrhea. Patient white count normalized to 8.6 as of yesterday no lab draw today, blood culture with E. coli that is sensitive to Zosyn resistant to amp sulbactam Objective - Vital Signs Vital signs: Vital Signs Temp 97.4 F L 03/26/23 06:56 Pulse 57 L 03/26/23 06:56 Resp 18 03/26/23 08:00 BP 117/74 03/26/23 06:56 Pulse Ox 97 03/26/23 06:56 FiO2 Intake & Output 03/25/23 03/26/23 03/26/23 18:59 06:59 18:59 Intake Total 30 Output Total 1595 40 Balance -1595 -40 30 Intake: IV 30 Invasive Line 1 30 Output: Drainage 120 40 Lower Abdomen 120 40 Urine 1475 Uretheral (Liu) 50 Other: Voiding Method Indwelling Catheter # Voids 1 2 - Exam GENERAL DESCRIPTION: Middle-age male up in the chair in no distress RESPIRATORY SYSTEM: Unlabored breathing , decreased breath sounds at bases HEART: S1 S2 regular rate and rhythm , ABDOMEN: Soft , no tenderness EXTREMITIES: No edema feet - Labs CBC & Chem 7: 03/25/23 08:32 03/24/23 05:29 Labs: Microbiology - Last 24 Hours (Table) 03/23/23 21:15 Blood Culture Gram Stain - Final Blood Blood Culture - Final Escherichia coli 03/23/23 21:00 Blood Culture Gram Stain - Final Blood Blood Culture - Final Escherichia coli Assessment and Plan (1) E coli bacteremia Current Visit: Yes Status: Acute Code(s): R78.81 - BACTEREMIA; B96.20 - UNSP ESCHERICHIA COLI THE CAUSE OF DISEASES CLASSD [facility] SNOMED Code(s): 525699271386 (2) Leukocytosis Current Visit: Yes Status: Acute Code(s): D72.829 - ELEVATED WHITE BLOOD CELL COUNT, UNSPECIFIED SNOMED Code(s): 908445159 (3) Appendicitis Current Visit: Yes Status: Acute Code(s): K37 - UNSPECIFIED APPENDICITIS SNOMED Code(s): 53274304 Plan: 1patient with sepsis in this patient who did have a fever tachycardia elevated white count source is acute appendicitis and this patient who is status post laparoscopic appendectomy on 03/24/2023 operative report did not mention any abscess 2-patient with E. coli bacteremia source likely acute appendicitis in this patient was status post appendectomy no mention of any abscess 3-patient to continue Zosyn 3.375 g every 8 hours while inpatient hopefully transition to oral antibiotics on discharge Dictation was produced using [employer] dictation software. please excuse any gra mmatical, word or spelling errors. Time with Patient: Less than 30
--- NOTE | 2023-03-26 15:31 | P.PN ---
Subjective Progress Note Date: 03/26/23 CHIEF COMPLAINT: Gangrenous appendicitis HISTORY OF PRESENT ILLNESS: Patient is status post laparoscopic appendectomy, postop day #2. Patient sitting at bedside chair. Denies any nausea or vomiting. He had a bowel movement and flatus. He has been up and ambulating. Afebrile. WBC has normalized from 16-8.6. Patient has been evaluated by infectious disease. LEW drain serosanguineous output PHYSICAL EXAM: VITAL SIGNS: Reviewed. GENERAL: Well-developed in no acute distress. ABDOMEN: Soft. Nondistended. Mild tenderness at incision sites. LEW drain dressing intact NEUROLOGIC: Alert and oriented. Cranial nerves II through XII grossly intact. ASSESSMENT: 1. Gangrenous appendicitis 2. Bacteremia PLAN: -Advance diet to regular -Patient can shower -Antibiotics per infectious disease -Continue pain management -GI prophylaxis Protonix and DVT prophylaxis subcu heparin Physician Diabetes Physician note has been reviewed by physician. Signing provider agrees with the documented findings, assessment, and plan of care. I have personally seen and examined the patient, reviewed the CONCERT PIANIST /PAs history, exam and MDM and agree with the assessment and plan as written. Based on total visit time, I have performed more than 50% of the visit. Patient doing much better today. Pain is a lot less. LEW drain serosanguineous. Continue antibiotics. Gradually advance diet. Objective - Vital Signs Vital signs: Vital Signs Temp 97.4 F L 03/26/23 06:56 Pulse 57 L 03/26/23 06:56 Resp 18 03/26/23 08:00 BP 117/74 03/26/23 06:56 Pulse Ox 97 03/26/23 06:56 FiO2 Intake & Output 03/25/23 03/26/23 03/26/23 18:59 06:59 18:59 Intake Total 30 Output Total 1595 40 Balance -1595 -40 30 Intake: IV 30 Invasive Line 1 30 Output: Drainage 120 40 Lower Abdomen 120 40 Urine 1475 Uretheral (Liu) 50 Other: Voiding Method Indwelling Catheter # Voids 1 2 - Labs CBC & Chem 7: 03/25/23 08:32 03/24/23 05:29 Labs: Microbiology - Last 24 Hours (Table) 03/23/23 21:15 Blood Culture Gram Stain - Final Blood Blood Culture - Final Escherichia coli 03/23/23 21:00 Blood Culture Gram Stain - Final Blood Blood Culture - Final Escherichia coli
[2023-03-27 15:07] VITALS: BP 132/76; PULSE 67; RESP 16; TEMP 98
--- NOTE | 2023-03-27 16:25 | P.PN ---
Subjective Progress Note Date: 03/27/23 Principal diagnosis: Reason for follow-up is gram-negative bacteremia and acute appendicitis Patient is a 37-year-old male with no significant past medical history presenting to the ER for evaluation of abdominal pain fever and chills has been diagnosed with acute appendicitis status post laparoscopic appendectomy blood cultures came back positive with gram-negative bacilli prompting this infectious disease consultation. On today's evaluation that is 03/27/2023, the patient remains to be afebrile, patient is currently breathing comfortably on room air, the patient denies chest pain or cough, patient denies abdominal pain, no nausea no vomiting or any diarrhea has been reported. . Patient white count normalized to 8.62 days ago no CBC has been done today blood culture with E. coli Objective - Vital Signs Vital signs: Vital Signs Temp 98.4 F 03/27/23 07:00 Pulse 73 03/27/23 07:00 Resp 19 03/27/23 07:00 BP 126/74 03/27/23 07:00 Pulse Ox 97 03/27/23 07:00 FiO2 Intake & Output 03/26/23 03/27/23 03/27/23 18:59 06:59 18:59 Intake Total 30 Output Total 50 Balance -20 Intake: IV 30 Invasive Line 1 30 Output: Drainage 50 Lower Abdomen 50 Other: # Voids 3 5 - Exam GENERAL DESCRIPTION: Middle-age male up in the chair in no distress RESPIRATORY SYSTEM: Unlabored breathing , decreased breath sounds at bases HEART: S1 S2 regular rate and rhythm , ABDOMEN: Soft , no tenderness EXTREMITIES: No edema feet - Labs CBC & Chem 7: 03/25/23 08:32 03/24/23 05:29 Labs: Microbiology - Last 24 Hours (Table) 03/23/23 21:15 Blood Culture Gram Stain - Final Blood Blood Culture - Final Escherichia coli 03/23/23 21:00 Blood Culture Gram Stain - Final Blood Blood Culture - Final Escherichia coli Assessment and Plan (1) E coli bacteremia Current Visit: Yes Status: Acute Code(s): R78.81 - BACTEREMIA; B96.20 - UNSP ESCHERICHIA COLI THE CAUSE OF DISEASES CLASSD [facility] SNOMED Code(s): 853405428020 (2) Leukocytosis Current Visit: Yes Status: Acute Code(s): D72.829 - ELEVATED WHITE BLOOD CELL COUNT, UNSPECIFIED SNOMED Code(s): 739863669 (3) Appendicitis Current Visit: Yes Status: Acute Code(s): K37 - UNSPECIFIED APPENDICITIS SNOMED Code(s): 33493390 Plan: 1patient with sepsis in this patient who did have a fever tachycardia elevated white count source is acute appendicitis and this patient who is status post laparoscopic appendectomy on 03/24/2023 operative report did not mention any abscess 2-patient with E. coli bacteremia source likely acute appendicitis in this patient was status post appendectomy no mention of any abscess 3-patient to continue Zosyn 3.375 g every 8 hours while inpatient plan to finish therapy with oral Cipro and Flagyl prescription sent to pharmacy Dictation was produced using [employer] dictation software. please excuse any grammatical, word or spelling errors. Time with Patient: Less than 30
--- NOTE | 2023-03-27 17:25 | P.PN ---
Subjective Progress Note Date: 03/27/23 CHIEF COMPLAINT: Gangrenous appendicitis HISTORY OF PRESENT ILLNESS: Patient is status post laparoscopic appendectomy, postop day #3. Patient reports his pain is controlled. He is tolerating diet. He did have a bowel movement. He has been up and ambulating. LEW drain serosanguineous output. Blood cultures E. coli PHYSICAL EXAM: VITAL SIGNS: Reviewed. GENERAL: Well-developed in no acute distress. ABDOMEN: Soft. Nondistended. Mild tenderness at incision sites. LEW drain dressing intact NEUROLOGIC: Alert and oriented. Cranial nerves II through XII grossly intact. ASSESSMENT: 1. Gangrenous appendicitis 2. Bacteremia PLAN: -Continue regular -Patient can shower -Antibiotics per infectious disease -Continue pain management -Possible discharge tomorrow -GI prophylaxis Protonix and DVT prophylaxis subcu heparin Physician Accounting Assistant note has been reviewed by physician. Signing provider agrees with the documented findings, assessment, and plan of care. Objective - Vital Signs Vital signs: Vital Signs Temp 98.0 F 03/27/23 14:00 Pulse 67 03/27/23 14:00 Resp 16 03/27/23 14:00 BP 132/76 03/27/23 14:00 Pulse Ox 95 03/27/23 14:00 FiO2 Intake & Output 03/26/23 03/27/23 03/27/23 18:59 06:59 18:59 Intake Total 30 Output Total 50 40 Balance -20 -40 Intake: IV 30 Invasive Line 1 30 Output: Gastric Drainage 20 Drainage 50 20 Lower Abdomen 50 20 Other: # Voids 3 5 - Labs CBC & Chem 7: 03/25/23 08:32 03/24/23 05:29
--- NOTE | 2023-03-27 17:27 | P.DS ---
Providers Date of admission: 03/25/23 11:42 Expected date of discharge: 03/27/23 Attending physician: Compa Bee Consults: 03/25/23 12:56 Consult Physician Routine Consulting Provider: Reji New Consult Reason/Comments: Positive blood cultures, appendicitis Do you want consulting provider notified?: Yes Primary care physician: Neal Christianson Hospital Course: Patient mated for acute appendicitis. Underwent relatively uneventful laparoscopic appendectomy although the appendix was retrocecal. Small area of gangrenous changes seen clinically intraoperatively. Pathology report shows fairly significant gangrenous changes. Patient postoperatively experienced increased pain and toxemia. Gradually improved. Doing well last 2 days. LEW drain serosanguineous. Tolerating diet. Pain continues to gradually improve. He would like to go home today. Plan discharge on oral antibiotics. Keep drain in place. Follow-up 1 week. Patient Condition at Discharge: Stable Plan - Discharge Summary Discharge Rx Participant: No New Discharge Prescriptions: New HYDROcodone/APAP 5-325MG [[place] 5-325] 1 tab PO Q6HR PRN 3 Days #6 tab PRN Reason: Analgesia Ciprofloxacin HCl [Cipro] 500 mg PO Q12HR 10 Days #20 tab metroNIDAZOLE [Flagyl] 500 mg PO TID #30 tab No Action Ibuprofen [Motrin] 600 mg PO Q6HR PRN #20 tab PRN Reason: Pain Esomeprazole Magnesium [NexIUM 24Hr] 20 mg PO BID PRN PRN Reason: ACID REFLUX Cyclobenzaprine [Flexeril] 10 mg PO HS PRN PRN Reason: Muscle Spasm Ondansetron Odt [Zofran Odt] 4 mg PO Q6H PRN PRN Reason: Nausea hydrOXYzine HCL [Atarax] 25 mg PO TID PRN PRN Reason: Anxiety/ITCHING Discharge Medication List Ibuprofen [Motrin] 600 mg PO Q6HR PRN #20 tab 06/05/20 [Rx] Esomeprazole Magnesium [NexIUM 24Hr] 20 mg PO BID PRN 03/23/23 [History] Ondansetron Odt [Zofran Odt] 4 mg PO Q6H PRN 03/23/23 [History] hydrOXYzine HCL [Atarax] 25 mg PO TID PRN 03/23/23 [History] Cyclobenzaprine [Flexeril] 10 mg PO HS PRN 03/24/23 [History] HYDROcodone/APAP 5-325MG [[place] 5-325] 1 tab PO Q6HR PRN 3 Days #6 tab 03/24/23 [Rx] Ciprofloxacin HCl [Cipro] 500 mg PO Q12HR 10 Days #20 tab 03/27/23 [Rx] metroNIDAZOLE [Flagyl] 500 mg PO TID #30 tab 03/27/23 [Rx] Follow up Appointment(s)/Referral(s): Compa Bee MD [Medical Doctor] - 1 Week Neal Christianson MD [Primary Care Provider] - 1-2 days Reji New MD [STAFF PHYSICIAN] - 1 Week
== END 2023-03-27 18:44 | disposition home or self-care (01) | DRG 854 ==
LOC: EC 16:48 → 4SSUR 20:54 → OBSVTOIN 03-25 11:42
PROVIDERS: ADMIT Surgery; ATTEND Surgery
PROC: 0DTJ4ZZ Resection of Appendix, Percutaneous Endoscopic Approach (ICD-10-PCS; principal; 2023-03-24 05:15)
DX: A41.51 Sepsis due to Escherichia coli [E. coli] (principal); K35.891 Other acute appendicitis without perforation, with gangrene
CPT/HCPCS: 36415; 74177; 76700; 76857; 80053; 81001; 82150; 83605; 83690; 85025; 85610; 85730; 87040; 87077; 87186; 87636; 87651; 88304; 94760; 96361; 96365; 96368; 96375; 99285